=== PATIENT | female | born 1960 | race Two or more races ===

== ENCOUNTER 2023-02-25 08:34 | Emergency (ER) | payer OTHER ==
[~2023-02-25] VITALS: Ht 154.9 cm; Wt 57.5 kg
[2023-02-25 09:47] VITALS: BP 138/82; PULSE 72; RESP 18
[2023-02-25 09:48] VITALS: O2SAT 98
[2023-02-25] MEDS ORDERED: KETO2CRE4 TOP (09:54)
== END 2023-02-25 10:00 | disposition home or self-care (01) ==
LOC: ER 08:34
DX: L30.4 Erythema intertrigo (principal); E11.9 Type 2 diabetes mellitus without complications; Z79.899 Other long term (current) drug therapy
CPT/HCPCS: 82962

== ENCOUNTER 2024-04-15 11:31 | Emergency (ER) | payer BC, OTHER ==
[~2024-04-15] VITALS: Ht 154.9 cm; Wt 60.0 kg
[~2024-04-15 11:31] MED LIST: KETO2CRE4 TOP
[2024-04-15 12:50] VITALS: PULSE 65; RESP 18; O2SAT 98
[2024-04-15] MEDS: IBUPROFEN 600 MG TAB PO ONE (12:54)
[2024-04-15] MEDS ORDERED: IBU600T PO (14:27)
[2024-04-15 14:45] VITALS: BP 139/80; PULSE 62; RESP 18; TEMP 98; O2SAT 97
== END 2024-04-15 14:46 | disposition home or self-care (01) ==
LOC: ER 11:31
DX: M75.91 Shoulder lesion, unspecified, right shoulder (principal); E11.9 Type 2 diabetes mellitus without complications
CPT/HCPCS: 29105; 73030

== ENCOUNTER 2025-03-15 17:55 | Inpatient (IN) | payer OTHER, MEDICAID ==
[~2025-03-15] VITALS: Ht 160 cm; Wt 61.2 kg
[2025-03-15] MEDS: D5W/SOD CHLO 0.9% 1,000 ML IV SCH
[~2025-03-15 17:55] MED LIST changes: +IBU600T PO
--- NOTE | 2025-03-15 19:05 | DVH ---
EXAM: XY CHEST PORTABLE HISTORY: weakness TECHNIQUE: 1 view of the chest COMPARISON: CR CHEST 2 VIEW on DOS: 04/01/24 FINDINGS/IMPRESSION: LUNGS: No pleural effusion, consolidation, or pneumothorax MEDIASTINUM: Unremarkable BONES: No acute osseous abnormality OTHER: None
[2025-03-15 19:15] LABS: Hematocrit 44.2 % (36.0-46.0); Hemoglobin 14.4 g/dL (12.2-16.2); Mean Corpuscular Hemoglobin 29.1 pg (28.0-32.0); Mean Corpuscular Volume 89.4 fL (80.0-100.0); Nucleated Red Blood Cells % 0.1 %
[2025-03-15 19:22] LABS: Anion Gap 14 (5-15); Calcium 9.5 mg/dL (8.7-10.4); Carbon Dioxide 22 mmol/L (20-31)
--- NOTE | 2025-03-15 19:26 | ED.PDOC ---
History of Present Illness HPI Comments 64 y/o F, with a history of DM and HTN, presents with c/c poor appetite and generalized weakness for 1x month. Patient reports no notable events with exception of noncompliance with her medications for the past month. No endorsement of any smoking or drinking alongside any further acute symptoms at this time. Chief Complaint: General Weakness Time Seen by MD: 18:25 Primary Care Provider: ? Reviewed Notes: Nurses Notes, Medications, Allergies Allergies: Coded Allergies: NO KNOWN ALLERGIES (Unverified , 02/25/23) Home Meds Active Scripts Ibuprofen Micronized (MOTRIN TABLET) 600 Mg Tb, 600 MG PO TID PRN, #40 TAB *Black box warning-NSAIDS can increase risk of AR & hypertension, GI irritation, ulceration, bleed, perferation. Do not use post cardiac surgery. Use short duration/lowest effective dose. 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 Hx Family History Family History: Reviewed,noncontributory to illness Social History Smoker: Non-Smoker Alcohol: Denies ETOH Use Drugs: Denies Drug Use Lives In: Home All Other Systems: Reviewed and Negative (As per HPI) Physical Exam General Appearance: No Apparent Distress, Normal HEENT: Pharynx Normal, TMs Normal, Other (dry mucus membranes, otherwise normal HEENT exam ) Neck: Full Range of Motion, Non-Tender, Normal, Normal Inspection Respiratory: Chest Non-Tender, Lungs Clear, No Accessory Muscle Use, No Respiratory Distress, Normal Breath Sounds Cardiovascular: No Edema, No JVD, No Murmur, No Gallop, Normal Peripheral Pulses, Regular Rate/Rhythm Breast Exam: Deferred Gastrointestinal: No Organomegaly, Non Tender, No Pulsatile Mass, Normal Bowel Sounds, Soft Genitalia: Deferred Pelvic: Deferred Rectal: Deferred Extremities: No calf tenderness, Normal capillary refill, Normal inspection, Normal range of motion, Non-tender, No pedal edema Musculoskeletal : Apperance: Normal Neurologic: Alert, 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 Was a procedure done?: No Differential Dx Considerations may include: noncompliance, dehydration, electrolyte imbalance, viral syndrome, dka, hyperosmolar hyperglycemic syndrome X-Ray, Labs, Meds, VS Vital Signs Date Time Temp Pulse Resp B/P (MAP) Pulse Ox O2 Delivery O2 Flow Rate FiO2 03/15/25 20:48 91 18 99 Nasal Cannula* 2 28 03/15/25 20:48 99.2 91 18 121/65 (83) 99 99.2 03/15/25 18:00 99.2 106 16 130/85 94 99.2 Lab Test 03/15/25 19:53 03/15/25 19:44 03/15/25 18:54 Range/Units Blood Gas Specimen Type Arterial Blood Gas Sample Site Right radial Blood Gas Patient Temperature 37.0 Arterial Blood Date Drawn [id number] Arterial Blood pH 7.371 7.350-7.450 Arterial Blood Partial Pressure CO2 34.3 32.0-45.0 mmHg Arterial Blood Partial Pressure O2 60.7 L 83.0-108.0 mmHg Arterial Blood HCO3 19.4 L 21.0-28.0 mmol/L Arterial Blood Oxygen Saturation 89.4 L 94.0-98.0 % Arterial Blood Base Excess -4.9 L -2.0-3.0 mmol/L Arterial Blood Oxyhemoglobin 88.4 L 94.0-98.0 % Arterial Blood Carboxyhemoglobin 0.4 L 0.5-1.5 % Arterial Blood Methemoglobin 0.7 0.0-1.5 % Luis Test Yes Blood Gas Total Hemoglobin 15.10 12.0-16.0 g/dL Blood Gas Liter Flow 0.00 Blood Gas Modality Room air FiO2 % 21.0 Sodium Level Pending 126 L 136-145 mmol/L Potassium Level Pending 5.8 *H 3.5-5.1 mmol/L Chloride Level Pending 90 L 98-107 mmol/L Carbon Dioxide Level Pending 22 20-31 mmol/L Anion Gap Pending 14 5-15 Blood Urea Nitrogen Pending 44 H 9-23 mg/dL Creatinine Pending 1.53 H 0.550-1.02 mg/dL Glomerular Filtration Rate Calc Pending 37 >90 mL/min BUN/Creatinine Ratio Pending 28.8 H 10.0-20.0 Serum Glucose Pending 677 *H 74-106 mg/dL Calcium Level Pending 9.5 8.7-10.4 mg/dL Troponin I High Sensitivity < 3 L < 3 L </=34 ng/L White Blood Count 10.6 4.4-10.8 10^3/uL Red Blood Count 4.94 4.0-5.20 10^6/uL Hemoglobin 14.4 12.2-16.2 g/dL Hematocrit 44.2 36.0-46.0 % Mean Corpuscular Volume 89.4 80.0-100.0 fL Mean Corpuscular Hemoglobin 29.1 28.0-32.0 pg Mean Corpuscular Hemoglobin Concent 32.5 32.0-36.0 g/dL Red Cell Distribution Width 13.5 11.8-14.3 % Platelet Count 351 140-450 10^3/uL Mean Platelet Volume 7.9 6.9-10.8 fL Neutrophils (%) (Auto) 68.3 37.0-80.0 % Lymphocytes (%) (Auto) 23.9 10.0-50.0 % Monocytes (%) (Auto) 7.3 0.0-12.0 % Eosinophils (%) (Auto) 0.0 0.0-7.0 % Basophils (%) (Auto) 0.5 0.0-2.0 % Neutrophils # (Auto) 7.2 1.6-8.6 10 ^3/uL Lymphocytes # (Auto) 2.5 0.4-5.4 10 ^3/uL Monocytes # (Auto) 0.8 0-1.3 10 ^3/uL Eosinophils # (Auto) 0 0-0.8 10 ^3/uL Basophils # (Auto) 0.1 0-0.2 10 ^3/uL Nucleated Red Blood Cells 0.1 % Serum Osmolality Pending Beta-Hydroxybutyric Acid Pending Current Medications Medications (Trade) Dose Ordered Sig/Soumya Route Start Time Stop Time Status Last Admin Sodium Chloride 1,000 ml @ 1,000 mls/hr Q1H ONCE IV 03/15/25 18:45 03/15/25 19:44 DC 03/15/25 20:40 [facility] [id number] [place] [id number] Ph: [phone] DIAGNOSTIC IMAGING Diagnostic Imaging Report : [id number] Signed PATIENT: EZEQUIEL HILL ACCT: [id number] UNIT: [id number] : 1960 LOC: ER ROOM / BED: / AGE / SEX: 64 / F ADM STATUS: REG ER SERVICE 35 ORDERING PHYSICIAN: GIOVANNA MEJIA MD PROCEDURE(s): CXRP - CHEST PORTABLE REASON: weakness ORDER NUMBER(s): [id number], ACCESSION NUMBER(s): [id number] EXAM: XY CHEST PORTABLE HISTORY: weakness TECHNIQUE: 1 view of the chest COMPARISON: CR CHEST 2 VIEW on DOS: 04/01/24 FINDINGS/IMPRESSION: LUNGS: No pleural effusion, consolidation, or pneumothorax MEDIASTINUM: Unremarkable BONES: No acute osseous abnormality OTHER: None ATED BY: CHANDRAKANT ARMSTRONG MD DICTATED DATE/TIME: 03/15/251902 SIGNED BY: CHANDRAKANT ARMSTRONG MD SIGNED DATE/TIME: 03/15/251902 CC: Time of 1ST Reevaluation: 18:55 Reevaluation 1ST: Unchanged Patient Education/Counseling: Diagnosis, Treatment, Prognosis, Need For Follow Up Family Education/Counseling: No Family Present Comments This is a patient who is a known diabetic for unknown reasons started to refuse taking her medications and patient presents appearing dehydrated the workup shows she may be in early DKA patient will be admitted to the hospital for further evaluation and treatment Additional Information The following tests were ordered, and results were reviewed by me: Accucheck EKG, troponin, BMP, UA, CXR, CBC Additional Information was gathered from interviewing the following independent historians: Family I reviewed and agreed with the following test results read by other providers: CXR I discussed treatment and results with medical personnel and: patient, family SEPSIS Sepsis Screen Date sepsis recognized/suspect: Mar 15, 2025 Time Sepsis recognized/suspect: 1800 Recent Procedure: No On Antibiotic Therapy: No Respiratory Rate >20: No Heart Rate >90: Yes Temp<36 C (96.8 F) or >38.3 C: No SBP <90 or MAP <65 mmHG: No New Acute Mental Status Change: No Is the patient on CPAP, BIPAP,: No Physician Orders Chest Portable (03/15/25 18:36) Urinalysis (03/15/25 18:36) Electrocardigram (03/15/25 18:36) Electrocardigram (03/15/25 19:36) Electrocardigram (03/15/25 21:36) Accucheck (03/15/25 18:36) Insulin Drip Protocol (03/15/25 ) Sodium Chloride 0.9% (03/15/25 19:45) Sodium Chloride 0.9% (03/16/25 01:45) Insulin Drip 100 Unit/100ml (Myxredlin 1 (03/15/25 19:45) Dextrose 50% Syringe (03/15/25 19:45) Glucose Blood (Accu-Chek Comfort Curve T (03/15/25 21:00) Osmolality, Serum (03/15/25 19:35) Basic Metabolic Panel (03/15/25 19:35) Basic Metabolic Panel (03/16/25 01:35) Basic Metabolic Panel (03/16/25 07:35) Basic Metabolic Panel (03/16/25 13:35) Neurological Assessment (03/15/25 19:35) Vs/Hemodynamics .PER UNIT PROTOCOL (03/15/25 19:35) Acetone (03/15/25 19:35) Insulin Lantus (Glargine) (Lantus) (03/16/25 10:00) Sodium Chloride 0.9% (03/15/25 23:45) Abg W/ Co-Ox (03/15/25 19:57) Vital Signs Date Time Temp Pulse Resp B/P (MAP) Pulse Ox O2 Delivery O2 Flow Rate FiO2 03/15/25 20:48 91 18 99 Nasal Cannula* 2 28 03/15/25 20:48 99.2 91 18 121/65 (83) 99 99.2 03/15/25 18:00 99.2 106 16 130/85 94 99.2 Laboratory Tests Test 03/15/25 18:54 White Blood Count 10.6 10^3/uL (4.4-10.8) Medications Medications Dose Ordered Sig/Soumya Route Start Time Stop Time Status Last Admin Dose Admin Sodium Chloride 1,000 ml @ 1,000 mls/hr Q1H ONCE IV 03/15/25 18:45 03/15/25 19:44 DC 03/15/25 20:40 Departure 1 Departure Time of Disposition: 21:19 Impression: Primary Impression: DKA (diabetic ketoacidosis) Qualified Codes: E10.10 - Type 1 diabetes mellitus with ketoacidosis without coma Additional Impressions: Renal failure Qualified Codes: N19 - Unspecified kidney failure Hyperkalemia Disposition: ADMITTED INPATIENT Admit to: ICU Condition: Serious Discharged With: Self, Relative Critical Care Note Critical Care Time?: Yes (55 min-critical care time only) Critical care comment: Due to concerns for patients condition deteriorating, the care required my highest level of attention and readiness to intervene. I assessed the patient, reviewed the medical records, ordered the appropriate tests and treatments, then reassessed for results and responsiveness. I communicated with medical personnel and consultants and formulated a plan of care. Total critical care time excludes any procedures Stability Stability form required: No Heart Score Heart Score: Heart Score Response (Comments) Value History N/A 0 EKG N/A 0 Age N/A 0 Risk Factors N/A 0 Troponin N/A 0 Total 0 I personally scribed for GIOVANNA MEJIA MD ([email or web address]) on 03/15/25 at 19:26. Electronically submitted by Scottie Morgan [email or web address]). GIOVANNA MEJIA MD Mar 15, 2025 19:26
[2025-03-15 19:27] LABS: BUN/Creatinine Ratio 28.8 (10.0-20.0)
[2025-03-15 19:29] LABS: Blood Urea Nitrogen 44 mg/dL (9-23); Chloride 90 mmol/L (98-107); Sodium 126 mmol/L (136-145)
[2025-03-15 19:31] LABS: Glucose 677 mg/dL (74-106); Potassium 5.8 mmol/L (3.5-5.1)
[2025-03-15] MEDS ORDERED: DEXTROSE (50%) 50ML SYRG IV PRN (19:45)
[2025-03-15 20:01] LABS: Base Excess -4.9 mmol/L (-2.0-3.0)
[2025-03-15 20:35] LABS: Anion Gap 14 (5-15); Calcium 9.1 mg/dL (8.7-10.4); Carbon Dioxide 21 mmol/L (20-31)
[2025-03-15 20:40] LABS: BUN/Creatinine Ratio 42.0 (10.0-20.0)
[2025-03-15] MEDS: SODIUM CHLORIDE 0.9% 1,000 ML IV ONE (20:40)
[2025-03-15 20:48] VITALS: PULSE 91; RESP 18; O2SAT 99
[2025-03-15] MEDS: INSULIN LANTUS (GLARGINE) 1 /0.01ml (100units/ml) SC ONE ×3 (21:22→21:27)
[2025-03-15] MEDS: ACCU-CHEK COMFORT CURVE STRIP VI SCH (21:26)
[2025-03-15 21:31] LABS: Blood Urea Nitrogen 60 mg/dL (9-23); Chloride 89 mmol/L (98-107); Sodium 124 mmol/L (136-145)
[2025-03-15 21:33] LABS: Glucose 667 mg/dL (74-106); Potassium 6.2 mmol/L (3.5-5.1)
[2025-03-15] MEDS: SODIUM CHLORIDE 0.9% 1,000 ML IV SCH ×3 (21:35→23:45)
[2025-03-15] MEDS ORDERED: HYDROcodone-ACET 5/325MG TAB PO PRN (22:00)
[2025-03-15] MEDS ORDERED: ONDANSETRON HCL 4 MG/2 ML VIAL IV PRN (22:00)
[2025-03-15 22:02] LABS: Urine Protein, UAD Negative (Negative)
--- NOTE | 2025-03-15 22:06 | DVHHP2 ---
Admitting Diagnosis: DKA, KATELYN, Electrolyte imbalance History of Present Illness History Source: Patient Exam Limitations: No limitations HPI Mrs. Arti Hinson is a 64 yo female with a history of DM and HTN, presents with a chief complaint of poor appetite and generalized weakness for 1 month. Patient reports no notable events with exception of noncompliance with her medications for the past month. No endorsement of any smoking or drinking alongside any further acute symptoms at this time. Patient son and daughter in law at bedside. Patient reports she has been feeling very weak for the past month, and that she has not taken her blood pressure and diabetes mellitus medications x 1 week , states "I forgot to take them" , also reports she has not been taking her anti depression medications x 1 month, states she stopped them abruptly. Patient son reports patient has been depressed due to loss of her son x 2 years ago. Also endorses patient has had a very poor appetite in the past couple of weeks. Patient denies any suicidal ideation, chest pain, headaches, dizziness, abdominal pain, nausea, vomiting, diarrhea, constipation. Patient admitted for further evaluation and treatment. Home Meds Active Scripts Ibuprofen Micronized (MOTRIN TABLET) 600 Mg Tb, 600 MG PO TID PRN, #40 TAB *Black box warning-NSAIDS can increase risk of PA & hypertension, GI irritation, ulceration, bleed, perferation. Do not use post cardiac surgery. Use short duration/lowest effective dose. Prov:GIOVANNA MEJIA MD 04/15/24 Ketoconazole (Ketoconazole) 2 % Cre, 1 APPLIC TOP BID, #60 GRAMS Prov:ERIC ESQUIVEL 02/25/23 Past Medical History Cardiac: HTN Pulmonary: No pertinent Hx Central Nervous System: No pertinent Hx GI: No pertinent Hx Hemotology/Oncology: No pertinent Hx Hepatobiliary: No pertinent Hx Psychiatric: Depression Musculoskeletal: No pertinent Hx Rheumotologic: No pertinent Hx Infectious Disease: No peritnent Hx ENT: No pertinent Hx Renal/: No pertinent Hx Endocrine: NIDDM Dermatology: No pertinent Hx Smoker: No Hx (Negative) Alocohol: None Drugs: None Lives with: With family Domestic Violence: Neg Review of Systems Constitutional: Weakness (generalized ), Other (poor appetite ) Ears, Nose, & Throat: No symptom reported Eyes: No symptom reported Pulmonary/Respiratory: No symptom reported Cardiovascular: No symptom reported Gastrointestinal: No symptom reported Genitourinary: No symptom reported Musculoskeletal: No symptom reported Skin: No symptom reported Psychiatric: No symptom reported Endocrine: No symptom reported Hemotologic/Lymphatic: No symptom reported H&P Exam Vital Signs Vital Signs Date Time Temp Pulse Resp B/P (MAP) Pulse Ox O2 Delivery O2 Flow Rate FiO2 03/15/25 20:48 91 18 99 Nasal Cannula* 2 28 03/15/25 20:48 99.2 121/65 (83) 99.2 General Appeara: Well developed, Well nourished, Other (flat affect) Head Exam: Normal inspection Neck Exam: Normal inspection, Non-tender, Normal alignment Eye Exam: bilateral eye Normal inspection, bilateral eye PERRL, bilateral eye EOMI Ear Exam: bilateral ear Auricle normal Nasal Exam: Normal inspection Mouth: Normal Inspection Pulmonary/Respiratory: Normal inspection, Normal breath sounds, Chest non- tender, Lungs clear Cardiovascular/Chest: Normal inspection, Regular rate, Normal Rhythm Peripheral Pulses: 2+ dorsalis pedis (R), 2+ dorsalis pedis (L) Abdominal Exam: Normal bowel sounds, Soft, No tenderness Tendon/ Neuro: Normal sensation, Normal motor function 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, Normal speech, PERRL Motor/Sensory: Normal sensory function, Normal motor function Neuro/Mental St: Alert, Oriented, Depressed affect (denies SI) Appearance: Appropriate appearance, Appropriate insight Eye contact/ Speech: Cooperative, Good eye contact, Normal speech Thoughts/Psych: Normal thought pattern Skin Exam: Normal inspection, Normal color, Warm/dry SEPSIS Sepsis Screen Date sepsis recognized/suspect: Mar 15, 2025 Time Sepsis recognized/suspect: 1800 Recent Procedure: No On Antibiotic Therapy: No Respiratory Rate >20: No Heart Rate >90: Yes Temp<36 C (96.8 F) or >38.3 C: No SBP <90 or MAP <65 mmHG: No New Acute Mental Status Change: No Is the patient on CPAP, BIPAP,: No Physician Orders Chest Portable (03/15/25 18:36) Urinalysis (03/15/25 18:36) Electrocardigram (03/15/25 18:36) Electrocardigram (03/15/25 19:36) Electrocardigram (03/15/25 21:36) Accucheck (03/15/25 18:36) Insulin Drip Protocol (03/15/25 ) Sodium Chloride 0.9% (03/15/25 19:45) Sodium Chloride 0.9% (03/16/25 01:45) Insulin Drip 100 Unit/100ml (Myxredlin 1 (03/15/25 19:45) Dextrose 50% Syringe (03/15/25 19:45) Glucose Blood (Accu-Chek Comfort Curve T (03/15/25 21:00) Neurological Assessment (03/15/25 19:35) Vs/Hemodynamics .PER UNIT PROTOCOL (03/15/25 19:35) Insulin Lantus (Glargine) (Lantus) (03/16/25 10:00) Sodium Chloride 0.9% (03/15/25 23:45) Abg W/ Co-Ox (03/15/25 19:57) Basic Metabolic Panel (03/16/25 01:35) Basic Metabolic Panel (03/16/25 02:00) Basic Metabolic Panel (03/16/25 06:00) Basic Metabolic Panel (03/16/25 10:00) Albuterol Medneb (Ventolin Medneb) (03/15/25 22:00) Sodium Bicarb 50meq/50ml Syr (03/15/25 22:00) Calcium Gluc 1,000mg/50ml-Ns (03/15/25 22:00) Sodium Zirconium Cyclosilicate (Lokelma) (03/15/25 22:00) Basic Metabolic Panel (03/15/25 22:00) Basic Metabolic Panel (03/16/25 02:00) Basic Metabolic Panel (03/16/25 06:00) Basic Metabolic Panel (03/16/25 10:00) Basic Metabolic Panel (03/16/25 14:00) Basic Metabolic Panel (03/16/25 18:00) Basic Metabolic Panel (03/16/25 22:00) Basic Metabolic Panel (03/17/25 02:00) Basic Metabolic Panel (03/17/25 06:00) Basic Metabolic Panel (03/17/25 10:00) Phosphorus (03/15/25 22:00) Phosphorus (03/16/25 02:00) Phosphorus (03/16/25 06:00) Phosphorus (03/16/25 10:00) Phosphorus (03/16/25 14:00) Phosphorus (03/16/25 18:00) Phosphorus (03/16/25 22:00) Phosphorus (03/17/25 02:00) Magnesium (03/16/25 05:00) Magnesium (03/17/25 05:00) Magnesium (03/18/25 05:00) Magnesium (03/19/25 05:00) Magnesium (03/20/25 05:00) Magnesium (03/21/25 05:00) Magnesium (03/22/25 05:00) Magnesium (03/23/25 05:00) Accucheck (03/15/25 22:00) Accucheck (03/15/25 23:00) Accucheck (03/16/25 00:00) Accucheck (03/16/25 01:00) Accucheck (03/16/25 02:00) Accucheck (03/16/25 03:00) Accucheck (03/16/25 04:00) Accucheck (03/16/25 05:00) Accucheck (03/16/25 06:00) Accucheck (03/16/25 07:00) Accucheck (03/16/25 08:00) Accucheck (03/16/25 09:00) Accucheck (03/16/25 10:00) Accucheck (03/16/25 11:00) Accucheck (03/16/25 12:00) Accucheck (03/16/25 13:00) Accucheck (03/16/25 14:00) Accucheck (03/16/25 15:00) Accucheck (03/16/25 16:00) Accucheck (03/16/25 17:00) Accucheck (03/16/25 18:00) Accucheck (03/16/25 19:00) Accucheck (03/16/25 20:00) Accucheck (03/16/25 21:00) Accucheck (03/16/25 22:00) Accucheck (03/16/25 23:00) Accucheck (03/17/25 00:00) Accucheck (03/17/25 01:00) Accucheck (03/17/25 02:00) Sodium Chloride 0.9% (03/15/25 22:00) D5w/Sod Chlo 0.9% (D5w Ns 0.9%) (03/15/25 22:00) Pt Request For Service (03/15/25 21:48) Fall Precautions Initiated (03/15/25 21:48) Ondansetron Hcl (Zofran) (03/15/25 22:00) Acetaminophen Tablet (Tylenol Tablet) (03/15/25 22:00) Hydrocodone-Acet 5/325mg Tab ([facility] 5/32 (03/15/25 22:00) Pantoprazole (Protonix) (03/16/25 10:00) Enoxaparin Sodium (Lovenox) (03/16/25 10:00) Admit (03/15/25 21:57) Stat Ekg For Chest Pain (03/15/25 21:57) Notify Md Of Changes From Base (03/15/25 21:57) Residential Installer For 24 Hours (03/15/25 21:57) Emergency Dysrhythmia Protocol (03/15/25 21:57) Rhythm Strips Once Every Shift (03/15/25 21:57) Oxygen By Nasal Cannula (03/15/25 21:57) *Dr. Hunter [facility] (03/15/25 21:57) Communication Order (03/15/25 21:59) Vital Signs Date Time Temp Pulse Resp B/P (MAP) Pulse Ox O2 Delivery O2 Flow Rate FiO2 03/15/25 20:48 91 18 99 Nasal Cannula* 2 28 03/15/25 20:48 99.2 91 18 121/65 (83) 99 99.2 03/15/25 18:00 99.2 106 16 130/85 94 99.2 Laboratory Tests Test 03/15/25 18:54 White Blood Count 10.6 10^3/uL (4.4-10.8) Medications Medications Dose Ordered Sig/Soumya Route Start Time Stop Time Status Last Admin Dose Admin Diagnostic Test (Pha) 1 strip Q90MIN 03/15/25 21:00 03/15/25 21:26 1 STRIP Insulin Glargine 15 units ONCE ONCE SC 03/15/25 21:00 03/15/25 21:01 DC 03/15/25 21:24 15 UNITS Sodium Chloride 1,000 ml @ 500 mls/hr Q2H IV 03/15/25 19:45 03/15/25 23:44 03/15/25 21:35 500 MLS/HR Sodium Chloride 1,000 ml @ 1,000 mls/hr Q1H ONCE IV 03/15/25 18:45 03/15/25 19:44 DC 03/15/25 20:40 1,000 MLS/HR Labs/Xrays Labs Test 03/15/25 21:21 03/15/25 19:53 03/15/25 19:44 03/15/25 18:54 Range/Units POC Glucose 501 *H 70-106 mg/dl Blood Gas Specimen Type Arterial Blood Gas Sample Site Right radial Blood Gas Patient Temperature 37.0 Arterial Blood Date Drawn [id number] Arterial Blood pH 7.371 7.350-7.450 Arterial Blood Partial Pressure CO2 34.3 32.0-45.0 mmHg Arterial Blood Partial Pressure O2 60.7 L 83.0-108.0 mmHg Arterial Blood HCO3 19.4 L 21.0-28.0 mmol/L Arterial Blood Oxygen Saturation 89.4 L 94.0-98.0 % Arterial Blood Base Excess -4.9 L -2.0-3.0 mmol/L Arterial Blood Oxyhemoglobin 88.4 L 94.0-98.0 % Arterial Blood Carboxyhemoglobin 0.4 L 0.5-1.5 % Arterial Blood Methemoglobin 0.7 0.0-1.5 % Luis Test Yes Blood Gas Total Hemoglobin 15.10 12.0-16.0 g/dL Blood Gas Liter Flow 0.00 Blood Gas Modality Room air FiO2 % 21.0 Sodium Level 124 L 136-145 mmol/L Potassium Level 6.2 *H 3.5-5.1 mmol/L Chloride Level 89 L 98-107 mmol/L Carbon Dioxide Level 21 20-31 mmol/L Anion Gap 14 5-15 Blood Urea Nitrogen 60 #H 9-23 mg/dL Creatinine 1.43 H 0.550-1.02 mg/dL Glomerular Filtration Rate Calc 40 >90 mL/min BUN/Creatinine Ratio 42.0 H 10.0-20.0 Serum Glucose 667 *H 74-106 mg/dL Calcium Level 9.1 8.7-10.4 mg/dL Troponin I High Sensitivity < 3 L </=34 ng/L White Blood Count 10.6 4.4-10.8 10^3/uL Red Blood Count 4.94 4.0-5.20 10^6/uL Hemoglobin 14.4 12.2-16.2 g/dL Hematocrit 44.2 36.0-46.0 % Mean Corpuscular Volume 89.4 80.0-100.0 fL Mean Corpuscular Hemoglobin 29.1 28.0-32.0 pg Mean Corpuscular Hemoglobin Concent 32.5 32.0-36.0 g/dL Red Cell Distribution Width 13.5 11.8-14.3 % Platelet Count 351 140-450 10^3/uL Mean Platelet Volume 7.9 6.9-10.8 fL Neutrophils (%) (Auto) 68.3 37.0-80.0 % Lymphocytes (%) (Auto) 23.9 10.0-50.0 % Monocytes (%) (Auto) 7.3 0.0-12.0 % Eosinophils (%) (Auto) 0.0 0.0-7.0 % Basophils (%) (Auto) 0.5 0.0-2.0 % Neutrophils # (Auto) 7.2 1.6-8.6 10 ^3/uL Lymphocytes # (Auto) 2.5 0.4-5.4 10 ^3/uL Monocytes # (Auto) 0.8 0-1.3 10 ^3/uL Eosinophils # (Auto) 0 0-0.8 10 ^3/uL Basophils # (Auto) 0.1 0-0.2 10 ^3/uL Nucleated Red Blood Cells 0.1 % Serum Osmolality 326 H 278-298 mOsm/kg Beta-Hydroxybutyric Acid 3.148 H < 0.4 mmol/L Test 03/15/25 18:36 Range/Units Assessment/Plan Problem List: (1) Acute kidney failure (2) DKA (diabetic ketoacidosis) (3) Hyperkalemia Plan This is a 64 yo female with known history of hypertension, diabetes mellitus type 2 , Depression, non compliance with home medications presents to the hospital with generalized weakness. Patient found to have 1. Acute Kidney Injury 2. DKA 3. Electrolyte imbalance 4. Hypertension 5. Depressive affect Plan Admit ICU Nephrology consultation Insulin drip per DKA protocol, glucose monitoring hourly while on insulin drip IV fluids Trend serial BMP, Phos , Magnesium every 4 hours Tele Psych consultation Discussed all above with patient and patient son and daughter in law in ED. Both family members and patient verbalized agreement and understanding of care plan. All questions were answered. Discussed with supervising MD. Plan discussed with: Patient, Other Code Visit Code Visit Total Time (mins): 45 CHERI MARSHALL Mar 15, 2025 22:06 EVENS PASCAL MD Mar 16, 2025 17:41
[2025-03-15] MEDS: ALBUTEROL SULF 2.5 MG/0.5ML(0.5%) NEB SOLN NEB ONE (22:19)
[2025-03-15 22:43] LABS: Chloride 100 mmol/L (98-107)
[2025-03-15 22:44] LABS: Anion Gap 11 (5-15)
[2025-03-15 22:49] LABS: BUN/Creatinine Ratio 29.2 (10.0-20.0)
[2025-03-15 22:56] LABS: Blood Urea Nitrogen 35 mg/dL (9-23); Calcium 8.3 mg/dL (8.7-10.4); Carbon Dioxide 20 mmol/L (20-31); Potassium 5.1 mmol/L (3.5-5.1); Sodium 131 mmol/L (136-145)
[2025-03-15 22:58] LABS: Glucose 506 mg/dL (74-106)
[2025-03-16] VITALS (96 sets, daily range): BP systolic 76–147; BP diastolic 36–75; PULSE 61–103; RESP 9–27; TEMP 98.3–98.6; O2SAT 88–100
[2025-03-16] MEDS ORDERED: INSULIN DRIP 100 UNIT/100ML 100 ML IV SCH ×2 (00:15→01:45)
[2025-03-16] MEDS: INSULIN DRIP 100 UNIT/100ML 100 ML IV SCH (00:18)
[2025-03-16] MEDS: CALCIUM GLUC 1,000mg/50ml-NS 50 ML IV ONE (00:34)
[2025-03-16] MEDS: SODIUM BICARB 8.4% 50Meq/50ml SYR INJ IV ONE (01:06)
[2025-03-16] MEDS: SODIUM ZIRCONIUM CYCL 10 GM PAK PO ONE (01:17)
[2025-03-16] MEDS: SODIUM CHLORIDE 0.9% 1,000 ML IV SCH (01:35)
[2025-03-16 02:23] LABS: Chloride 102 mmol/L (98-107); Potassium 4.5 mmol/L (3.5-5.1); Sodium 137 mmol/L (136-145)
[2025-03-16 02:24] LABS: Anion Gap 17 (5-15)
[2025-03-16 02:26] LABS: Calcium 8.1 mg/dL (8.7-10.4); Carbon Dioxide 18 mmol/L (20-31)
[2025-03-16 02:29] LABS: BUN/Creatinine Ratio 29.3 (10.0-20.0)
[2025-03-16 02:30] LABS: Magnesium 2.4 mg/dL (1.6-2.6)
[2025-03-16 02:35] LABS: Blood Urea Nitrogen 29 mg/dL (9-23); Glucose 442 mg/dL (74-106)
[2025-03-16 05:11] LABS: Chloride 107 mmol/L (98-107); Potassium 3.7 mmol/L (3.5-5.1); Sodium 141 mmol/L (136-145)
[2025-03-16 05:12] LABS: Anion Gap 12 (5-15); Carbon Dioxide 22 mmol/L (20-31)
[2025-03-16 05:17] LABS: BUN/Creatinine Ratio 55.4 (10.0-20.0)
[2025-03-16 05:18] LABS: Magnesium 2.1 mg/dL (1.6-2.6)
[2025-03-16 05:19] LABS: Blood Urea Nitrogen 41 mg/dL (9-23); Calcium 8.0 mg/dL (8.7-10.4); Glucose 255 mg/dL (74-106)
[2025-03-16] MEDS: NOREPINEPHRINE 8 MG/250ML KIT 250 ML IV SCH (06:15)
[2025-03-16] MEDS: PANTOPRAZOLE 40 MG/10 ML VIAL INJ IV SCH (08:10)
[2025-03-16] MEDS: ENOXAPARIN SOD 40 MG/0.4 ML SYRINGE SC SCH (08:11)
[2025-03-16] MEDS: INSULIN LANTUS (GLARGINE) 1 /0.01ml (100units/ml) SC SCH (08:11)
--- NOTE | 2025-03-16 10:09 | DVHINCON2 ---
Date of service: Mar 16, 2025 Referring Physician Asia Monahan, nurse practitioner Reason for Consultation Acute kidney injury History of Present Illness Patient is 64-year-old female with past medical history significant for uncontrolled diabetes mellitus and hypertension is admitted for generalized weakness for one month, patient has stopped taking her insulin due to episodes of depression. On admission patient found to have elevated BUN creatinine and multiple electrolyte abnormalities nephrology is consulted for acute kidney injury Past Medical History Diabetes mellitus, hypertension Past Surgical History Patient denies Allergies: Coded Allergies: NO KNOWN ALLERGIES (Unverified , 02/25/23) Home Meds Active Scripts Ibuprofen Micronized (MOTRIN TABLET) 600 Mg Tb, 600 MG PO TID PRN, #40 TAB *Black box warning-NSAIDS can increase risk of VA & hypertension, GI irritation, ulceration, bleed, perferation. Do not use post cardiac surgery. Use short duration/lowest effective dose. Prov:GIOVANNA MEJIA MD 04/15/24 Ketoconazole (Ketoconazole) 2 % Cre, 1 APPLIC TOP BID, #60 GRAMS Prov:ERIC ESQUIVEL 02/25/23 Current Medications Current Medications Medications (Trade) Dose Ordered Sig/Soumya Route PRN Reason Start Time Stop Time Status Last Admin Sodium Chloride 1,000 ml @ 500 mls/hr Q2H IV 03/15/25 19:45 03/15/25 23:44 DC 03/15/25 22:20 Sodium Chloride 1,000 ml @ 250 mls/hr Q4H IV 03/15/25 23:45 03/16/25 01:44 DC Sodium Chloride 1,000 ml @ 150 mls/hr Q6H40M IV 03/16/25 01:45 03/16/25 12:05 DC Insulin Human (Reg)/Sodium Chloride 100 ml @ 0.5 mls/hr Q24H IV 03/15/25 19:45 03/16/25 12:05 DC 03/16/25 00:18 Dextrose 50 ml UD PRN IV SEE CURRENT ALGORITHM or SCALE 03/15/25 19:45 Diagnostic Test (Pha) (Accu-Chek Comfort Curve T) 1 strip Q90MIN 03/15/25 21:00 03/16/25 12:05 DC 03/16/25 10:32 Insulin Glargine (Lantus) 15 units DAILY SC 03/16/25 10:00 03/16/25 08:11 Sodium Chloride 1,000 ml @ 250 mls/hr Q4H IV 03/15/25 22:00 03/16/25 12:05 DC 03/16/25 09:11 Dextrose/Sodium Chloride 1,000 ml @ 250 mls/hr Q4H IV 03/15/25 22:00 03/16/25 12:05 DC 03/16/25 06:14 Ondansetron HCl (Zofran) 4 mg Q6HPRN PRN IV NAUSEA OR VOMITING 03/15/25 22:00 Acetaminophen (Tylenol Tablet) 650 mg Q6HPRN PRN PO PAIN SCALE 1-3 OR TEMP>100.4 03/15/25 22:00 Acetaminophen/ Hydrocodone Bitart ([place] 5/325MG Tab) 1 tab Q6HPRN PRN PO PAIN SCALE 1 THRU 6 03/15/25 22:00 Pantoprazole Sodium (Protonix) 40 mg DAILY IV 03/16/25 10:00 03/16/25 08:10 Enoxaparin Sodium (Lovenox) 40 mg DAILY SC 03/16/25 10:00 03/16/25 08:11 Insulin Human (Reg)/Sodium Chloride 100 ml @ 0.5 mls/hr Q24H IV 03/16/25 00:15 03/16/25 00:26 DC Insulin Human (Reg)/Sodium Chloride 100 ml @ 0.5 mls/hr Q24H IV 03/16/25 01:45 UNV Norepinephrine Bitartrate 250 ml @ 3.75 mls/hr Q24H IV 03/16/25 06:00 03/16/25 06:15 Potassium Chloride/Sodium Chloride 1,000 ml @ 125 mls/hr Q8H IV 03/16/25 12:00 Nystatin (Mycostatin (Mouth-Throat)) 5 ml QID MT 03/16/25 12:00 Diagnostic Test (Pha) (Accu-Chek Comfort Curve T) 1 strip ACHS 03/16/25 17:00 Insulin Human Regular (InsuLIN R) ACHS SC 03/16/25 17:00 Dextrose 50 ml UD PRN IV Blood Sugar LESS THAN 60 03/16/25 12:00 Review of Systems All 12 item review of systems reviewed with the patient nonsignificant except what is mentioned in the history of present illness H&P Exam Vital Signs/I&O Vital Sign Date Time Temp Pulse Resp B/P (MAP) Pulse Ox O2 Delivery O2 Flow Rate FiO2 03/16/25 11:55 15 94 Room Air* 0 21 03/16/25 11:55 80 03/16/25 10:30 113/51 (71) 03/16/25 08:00 98.6 98.6 Intake and Output 03/15/25 03/16/25 19:00 07:00 Intake Total 2894.25 ml Output Total 0 ml Balance 2894.25 ml Intake Oral 120 ml IV Total 2774.25 ml Output Urine Total 0 ml Physical Exam Patient lying comfortably in bed Lungs clear to auscultation bilaterally Cardiac exam regular rate and rhythm GI soft nontender was normal Extremities no clubbing cyanosis or edema Neuro nonfocal Labs/Diagnostic Data Labs/Diagnostic Data Laboratory Tests Test 03/16/25 10:30 03/16/25 10:22 03/16/25 09:30 03/16/25 09:05 Range/Units POC Glucose 179 H 294 H 70-106 mg/dl White Blood Count 9.5 4.4-10.8 10^3/uL Red Blood Count 4.20 4.0-5.20 10^6/uL Hemoglobin 12.3 12.2-16.2 g/dL Hematocrit 37.2 # 36.0-46.0 % Mean Corpuscular Volume 88.5 80.0-100.0 fL Mean Corpuscular Hemoglobin 29.4 28.0-32.0 pg Mean Corpuscular Hemoglobin Concent 33.2 32.0-36.0 g/dL Red Cell Distribution Width 13.3 11.8-14.3 % Platelet Count 219 140-450 10^3/uL Mean Platelet Volume 7.6 6.9-10.8 fL Neutrophils (%) (Auto) 56.6 37.0-80.0 % Lymphocytes (%) (Auto) 33.4 10.0-50.0 % Monocytes (%) (Auto) 9.2 0.0-12.0 % Eosinophils (%) (Auto) 0.2 0.0-7.0 % Basophils (%) (Auto) 0.6 0.0-2.0 % Neutrophils # (Auto) 5.4 1.6-8.6 10 ^3/uL Lymphocytes # (Auto) 3.2 0.4-5.4 10 ^3/uL Monocytes # (Auto) 0.9 0-1.3 10 ^3/uL Eosinophils # (Auto) 0 0-0.8 10 ^3/uL Basophils # (Auto) 0.1 0-0.2 10 ^3/uL Nucleated Red Blood Cells 0.1 % Sodium Level 142 136-145 mmol/L Potassium Level 3.4 L 3.5-5.1 mmol/L Chloride Level 110 H 98-107 mmol/L Carbon Dioxide Level 23 20-31 mmol/L Anion Gap 9 5-15 Blood Urea Nitrogen 21 # 9-23 mg/dL Creatinine 0.68 0.550-1.02 mg/dL Glomerular Filtration Rate Calc 96 >90 mL/min BUN/Creatinine Ratio 30.9 H 10.0-20.0 Serum Glucose 216 H 74-106 mg/dL Calcium Level 7.3 L 8.7-10.4 mg/dL Phosphorus Level 2.0 L 2.4-5.1 mg/dL Magnesium Level 2.2 1.6-2.6 mg/dL Urine Creatinine 33.74 30.0-125.0 mg/dL Urine Protein/Creatinine Ratio 0.27 Urine Sodium 68 40-220 mmol/L Urine Total Protein 9.1 1-14 mg/dL Test 03/16/25 07:43 03/16/25 06:01 03/16/25 04:36 03/16/25 04:28 Range/Units POC Glucose 274 H 178 H 270 H 70-106 mg/dl Sodium Level 141 136-145 mmol/L Potassium Level 3.7 3.5-5.1 mmol/L Chloride Level 107 98-107 mmol/L Carbon Dioxide Level 22 20-31 mmol/L Anion Gap 12 5-15 Blood Urea Nitrogen 41 #H 9-23 mg/dL Creatinine 0.74 0.550-1.02 mg/dL Glomerular Filtration Rate Calc 89 >90 mL/min BUN/Creatinine Ratio 55.4 H 10.0-20.0 Serum Glucose 255 H 74-106 mg/dL Calcium Level 8.0 L 8.7-10.4 mg/dL Phosphorus Level 2.8 2.4-5.1 mg/dL Magnesium Level 2.1 1.6-2.6 mg/dL Test 03/16/25 03:02 03/16/25 01:59 03/16/25 01:32 03/15/25 23:56 Range/Units POC Glucose 352 H 442 *H 522 *H 70-106 mg/dl Sodium Level 137 # 136-145 mmol/L Potassium Level 4.5 3.5-5.1 mmol/L Chloride Level 102 98-107 mmol/L Carbon Dioxide Level 18 L 20-31 mmol/L Anion Gap 17 H 5-15 Blood Urea Nitrogen 29 H 9-23 mg/dL Creatinine 0.99 0.550-1.02 mg/dL Glomerular Filtration Rate Calc 63 >90 mL/min BUN/Creatinine Ratio 29.3 H 10.0-20.0 Serum Glucose 442 *H 74-106 mg/dL Calcium Level 8.1 L 8.7-10.4 mg/dL Phosphorus Level 4.1 2.4-5.1 mg/dL Magnesium Level 2.4 1.6-2.6 mg/dL Test 03/15/25 22:26 03/15/25 21:21 03/15/25 19:53 03/15/25 19:44 Range/Units Sodium Level 131 #L 124 L 136-145 mmol/L Potassium Level 5.1 6.2 *H 3.5-5.1 mmol/L Chloride Level 100 # 89 L 98-107 mmol/L Carbon Dioxide Level 20 21 20-31 mmol/L Anion Gap 11 14 5-15 Blood Urea Nitrogen 35 #H 60 #H 9-23 mg/dL Creatinine 1.20 H 1.43 H 0.550-1.02 mg/dL Glomerular Filtration Rate Calc 50 40 >90 mL/min BUN/Creatinine Ratio 29.2 H 42.0 H 10.0-20.0 Serum Glucose 506 *H 667 *H 74-106 mg/dL Calcium Level 8.3 L 9.1 8.7-10.4 mg/dL Phosphorus Level 4.1 2.4-5.1 mg/dL POC Glucose 501 *H 70-106 mg/dl Blood Gas Specimen Type Arterial Blood Gas Sample Site Right radial Blood Gas Patient Temperature 37.0 Arterial Blood Date Drawn [id number] Arterial Blood pH 7.371 7.350-7.450 Arterial Blood Partial Pressure CO2 34.3 32.0-45.0 mmHg Arterial Blood Partial Pressure O2 60.7 L 83.0-108.0 mmHg Arterial Blood HCO3 19.4 L 21.0-28.0 mmol/L Arterial Blood Oxygen Saturation 89.4 L 94.0-98.0 % Arterial Blood Base Excess -4.9 L -2.0-3.0 mmol/L Arterial Blood Oxyhemoglobin 88.4 L 94.0-98.0 % Arterial Blood Carboxyhemoglobin 0.4 L 0.5-1.5 % Arterial Blood Methemoglobin 0.7 0.0-1.5 % Luis Test Yes Blood Gas Total Hemoglobin 15.10 12.0-16.0 g/dL Blood Gas Liter Flow 0.00 Blood Gas Modality Room air FiO2 % 21.0 Troponin I High Sensitivity < 3 L </=34 ng/L Test 03/15/25 18:54 03/15/25 18:36 Range/Units White Blood Count 10.6 4.4-10.8 10^3/uL Red Blood Count 4.94 4.0-5.20 10^6/uL Hemoglobin 14.4 12.2-16.2 g/dL Hematocrit 44.2 36.0-46.0 % Mean Corpuscular Volume 89.4 80.0-100.0 fL Mean Corpuscular Hemoglobin 29.1 28.0-32.0 pg Mean Corpuscular Hemoglobin Concent 32.5 32.0-36.0 g/dL Red Cell Distribution Width 13.5 11.8-14.3 % Platelet Count 351 140-450 10^3/uL Mean Platelet Volume 7.9 6.9-10.8 fL Neutrophils (%) (Auto) 68.3 37.0-80.0 % Lymphocytes (%) (Auto) 23.9 10.0-50.0 % Monocytes (%) (Auto) 7.3 0.0-12.0 % Eosinophils (%) (Auto) 0.0 0.0-7.0 % Basophils (%) (Auto) 0.5 0.0-2.0 % Neutrophils # (Auto) 7.2 1.6-8.6 10 ^3/uL Lymphocytes # (Auto) 2.5 0.4-5.4 10 ^3/uL Monocytes # (Auto) 0.8 0-1.3 10 ^3/uL Eosinophils # (Auto) 0 0-0.8 10 ^3/uL Basophils # (Auto) 0.1 0-0.2 10 ^3/uL Nucleated Red Blood Cells 0.1 % Sodium Level 126 L 136-145 mmol/L Potassium Level 5.8 *H 3.5-5.1 mmol/L Chloride Level 90 L 98-107 mmol/L Carbon Dioxide Level 22 20-31 mmol/L Anion Gap 14 5-15 Blood Urea Nitrogen 44 H 9-23 mg/dL Creatinine 1.53 H 0.550-1.02 mg/dL Glomerular Filtration Rate Calc 37 >90 mL/min BUN/Creatinine Ratio 28.8 H 10.0-20.0 Serum Glucose 677 *H 74-106 mg/dL Serum Osmolality 326 H 278-298 mOsm/kg Calcium Level 9.5 8.7-10.4 mg/dL Troponin I High Sensitivity < 3 L </=34 ng/L Beta-Hydroxybutyric Acid 3.148 H < 0.4 mmol/L Urine Color Light-yellow Yellow Urine Clarity Clear Clear Urine pH 5.5 5.0-9.0 Urine Specific [place] 1.023 1.001-1.035 Urine Protein Negative Negative Urine Ketones 1+ H Negative Urine Blood Negative Negative /uL Urine Nitrite Negative Negative Urine Bilirubin Negative Negative Urine Urobilinogen Normal Negative mg/dL Urine Leukocyte Esterase Negative Negative /uL Urine RBC None seen 0 - 4 /hpf Urine Microscopic WBC < 1 0-5 /HPF Urine Squamous Epithelial Cells Few <5 /hpf Urine Bacteria None seen None Seen /hpf Urine Mucus Few None Seen Urine Glucose 4+ H Normal mg/dL Microbiology Date/Time Source Procedure Growth Status 03/16/25 07:32 Nose MRSA Screen - Final Complete Assessment Acute kidney injury superimposed Chronic Kidney Disease secondary hemodynamic me diated Uncontrolled diabetes mellitus medical noncompliance Hyperglycemia Diabetic ketoacidosis, resolved Hyperkalemia resolved Hyponatremia, dilutional, resolved Oral candidiasis Recommendations Kidney function is improving Closely monitor fluid and electrolytes Avoid nephrotoxic medication Strict I&Os Change IV F to half NS with 20 mEq potassium chloride at 120 cc/hour Insulin sliding scale Nystatin oral solution 5 cc swish and swallow q.i.d. for five days Diabetic diet We will continue to follow up I will sign off this case, please reconsult as needed Thank you for the consult Plan discussed with: Patient MILENA HAWKINS MD Mar 16, 2025 10:09
--- NOTE | 2025-03-16 10:11 | DVH ---
Renal ultrasound HISTORY: [place] TECHNIQUE: 2 D ultrasound was performed with transaxial and longitudinal images. FINDINGS: Right kidney measures 10.9 cm and left kidney measures 10.6 cm. No renal masses or stones. Mild pyelo caliectasis of the left kidney. Urinary bladder smooth walled without mass or stone IMPRESSION: 1. No evidence of hydronephrosis or obstructing stone
[2025-03-16 10:47] LABS: Hematocrit 37.2 % (36.0-46.0); Hemoglobin 12.3 g/dL (12.2-16.2); Mean Corpuscular Hemoglobin 29.4 pg (28.0-32.0); Mean Corpuscular Volume 88.5 fL (80.0-100.0); Nucleated Red Blood Cells % 0.1 %
[2025-03-16 10:54] LABS: Anion Gap 9 (5-15); Carbon Dioxide 23 mmol/L (20-31); Sodium 142 mmol/L (136-145)
[2025-03-16 10:58] LABS: Calcium 7.3 mg/dL (8.7-10.4); Chloride 110 mmol/L (98-107); Potassium 3.4 mmol/L (3.5-5.1)
[2025-03-16 11:00] LABS: BUN/Creatinine Ratio 30.9 (10.0-20.0); Blood Urea Nitrogen 21 mg/dL (9-23); Magnesium 2.2 mg/dL (1.6-2.6)
[2025-03-16 11:08] LABS: Glucose 216 mg/dL (74-106)
[2025-03-16 11:49] LABS: Protein, Urine 9.1 mg/dL (1-14)
[2025-03-16] MEDS ORDERED: DEXTROSE (50%) 50ML SYRG IV PRN (12:00)
[2025-03-16] MEDS: NYSTATIN (MOUTH-THROAT) 500,000 UNITS/5 ML SUSP MT SCH (12:39)
[2025-03-16] MEDS: SOD CHL 0.45% WITH 20MEQ KCL 1,000 ML IV SCH (12:40)
[2025-03-16] MEDS: POTASSIUM PHOSPHATE 22 MEQ in SODIUM CHL 0.9% 100 ML IV ONE (12:40)
[2025-03-16] MEDS: InsuLIN REG 1unit/0.01ml Soln (100units/ml) SC SCH (17:00)
[2025-03-16] MEDS: ACCU-CHEK COMFORT CURVE STRIP VI SCH (17:02)
[2025-03-16 17:12] LABS: Potassium 4.0 mmol/L (3.5-5.1); Sodium 142 mmol/L (136-145)
[2025-03-16 17:13] LABS: Anion Gap 11 (5-15); Carbon Dioxide 20 mmol/L (20-31)
[2025-03-16 17:18] LABS: BUN/Creatinine Ratio 28.8 (10.0-20.0); Blood Urea Nitrogen 17 mg/dL (9-23)
[2025-03-16 17:25] LABS: Calcium 6.9 mg/dL (8.7-10.4); Chloride 111 mmol/L (98-107); Glucose 183 mg/dL (74-106)
--- NOTE | 2025-03-16 17:43 | DVHPN2 ---
Subjective Patient is currently insulin drip is off, tolerating diet. 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 Medications Current Medications Medications Dose Ordered Sig/Soumya Route Start Time Stop Time Status Last Admin Dose Admin Dextrose 50 ml UD PRN IV 03/15/25 19:45 Cancel Insulin Glargine 15 units DAILY SC 03/16/25 10:00 03/16/25 08:11 15 UNITS Ondansetron HCl 4 mg Q6HPRN PRN IV 03/15/25 22:00 Acetaminophen 650 mg Q6HPRN PRN PO 03/15/25 22:00 Acetaminophen/ Hydrocodone Bitart 1 tab Q6HPRN PRN PO 03/15/25 22:00 Pantoprazole Sodium 40 mg DAILY IV 03/16/25 10:00 03/16/25 08:10 40 MG Enoxaparin Sodium 40 mg DAILY SC 03/16/25 10:00 03/16/25 08:11 40 MG Insulin Human (Reg)/Sodium Chloride 100 ml @ 0.5 mls/hr Q24H IV 03/16/25 01:45 UNV Norepinephrine Bitartrate 250 ml @ 3.75 mls/hr Q24H IV 03/16/25 06:00 03/16/25 06:15 3.75 MLS/HR Potassium Chloride/Sodium Chloride 1,000 ml @ 125 mls/hr Q8H IV 03/16/25 12:00 03/16/25 12:40 125 MLS/HR Nystatin 5 ml QID MT 03/16/25 12:00 03/16/25 17:02 5 ML Diagnostic Test (Pha) 1 strip ACHS 03/16/25 17:00 03/16/25 17:02 1 STRIP Insulin Human Regular ACHS SC 03/16/25 17:00 Dextrose 50 ml UD PRN IV 03/16/25 12:00 Laboratory Results Laboratory Tests 03/16/25 10:22 03/16/25 14:50 Chemistry Test 03/15/25 18:54 03/15/25 19:44 03/15/25 22:26 03/16/25 01:59 Calcium Level 9.5 mg/dL (8.7-10.4) 9.1 mg/dL (8.7-10.4) 8.3 mg/dL (8.7-10.4) L 8.1 mg/dL (8.7-10.4) L Phosphorus Level 4.1 mg/dL (2.4-5.1) 4.1 mg/dL (2.4-5.1) Magnesium Level 2.4 mg/dL (1.6-2.6) Test 03/16/25 04:36 03/16/25 10:22 03/16/25 14:50 Calcium Level 8.0 mg/dL (8.7-10.4) L 7.3 mg/dL (8.7-10.4) L 6.9 mg/dL (8.7-10.4) L Magnesium Level 2.1 mg/dL (1.6-2.6) 2.2 mg/dL (1.6-2.6) 2.1 mg/dL (1.6-2.6) Phosphorus Level 2.8 mg/dL (2.4-5.1) 2.0 mg/dL (2.4-5.1) L Urinalysis Test 03/15/25 18:36 03/16/25 09:30 Urine Color Light-yellow (Yellow) Urine Clarity Clear (Clear) Urine pH 5.5 (5.0-9.0) Urine Specific [place] 1.023 (1.001-1.035) Urine Protein Negative (Negative) Urine Ketones 1+ (Negative) H Urine Blood Negative /uL (Negative) Urine Nitrite Negative (Negative) Urine Bilirubin Negative (Negative) Urine Urobilinogen Normal mg/dL (Negative) Urine Leukocyte Esterase Negative /uL (Negative) Urine RBC None seen /hpf (0 - 4) Urine Microscopic WBC < 1 /HPF (0-5) Urine Squamous Epithelial Cells Few /hpf (<5) Urine Bacteria None seen /hpf (None Seen) Urine Mucus Few (None Seen) Urine Glucose 4+ mg/dL (Normal) H Urine Creatinine 33.74 mg/dL (30.0-125.0) Urine Protein/Creatinine Ratio 0.27 Urine Sodium 68 mmol/L (40-220) Urine Total Protein 9.1 mg/dL (1-14) Blood Gas Results Test 03/15/25 19:53 Arterial Blood pH 7.371 (7.350-7.450) FiO2 % 21.0 Microbiology Microbiology Date/Time Source Procedure Growth Status 03/16/25 07:32 Nose MRSA Screen - Final Complete Assessment/Plan Assessment/Plan 64-year-old female with a known history of diabetes mellitus type 2 insulin- dependent presented to the hospital with a loss of appetite generalized weakness found to have 1. Diabetic ketoacidosis 2. Hyperkalemia treated 3. Acute kidney injury suspected secondary to vasomotor nephropathy 4. Hypertension Diabetic diet as tolerated, resume home dose of insulin, downgraded to telemetry Plan discussed with: Patient, Other My Orders Orders - EVENS PASCAL MD Procedure Category Date Status Time Complete Blood Count LAB 03/17/25 Verified 04:00 Basic Metabolic Panel LAB 03/17/25 Verified 04:00 Date of Service: Mar 16, 2025 Billing Provider: EVENS PASCAL MD Common Visit Codes: NOT BILLABLE EVENS PASCAL MD Mar 16, 2025 17:43
[2025-03-16] MEDS ORDERED: CALC-518 PO (20:21)
[2025-03-16] MEDS ORDERED: LISI20TA56 PO (20:21)
[2025-03-16] MEDS ORDERED: CHLO0.12 (20:21)
[2025-03-16] MEDS ORDERED: INSUINJ37 SC (20:21)
[2025-03-16] MEDS ORDERED: SERT-160 PO (20:21)
[2025-03-16] MEDS ORDERED: GABA-1250 PO (20:21)
[2025-03-16] MEDS ORDERED: ATOR-47 PO (20:21)
[2025-03-16] MEDS ORDERED: DULA0.5I SC (20:21)
[2025-03-16] MEDS ORDERED: METF-372 PO (20:21)
[2025-03-16] MEDS ORDERED: FENO160T PO (20:21)
[2025-03-16] MEDS ORDERED: ESCI1TAB36 PO (20:21)
[2025-03-17] VITALS (77 sets, daily range): BP systolic 94–159; BP diastolic 44–80; PULSE 61–83; RESP 8–28; TEMP 97.1–98.8; O2SAT 91–99
[2025-03-17 05:42] LABS: Hematocrit 36.0 % (36.0-46.0); Hemoglobin 12.1 g/dL (12.2-16.2); Mean Corpuscular Hemoglobin 29.4 pg (28.0-32.0); Mean Corpuscular Volume 87.3 fL (80.0-100.0); Nucleated Red Blood Cells % 0.0 %
[2025-03-17 05:51] LABS: Anion Gap 10 (5-15); Carbon Dioxide 24 mmol/L (20-31); Potassium 4.1 mmol/L (3.5-5.1); Sodium 144 mmol/L (136-145)
[2025-03-17 05:52] LABS: Calcium 7.6 mg/dL (8.7-10.4); Chloride 110 mmol/L (98-107)
[2025-03-17 05:57] LABS: BUN/Creatinine Ratio 15.8 (10.0-20.0); Blood Urea Nitrogen 9 mg/dL (9-23); Magnesium 2.1 mg/dL (1.6-2.6)
[2025-03-17 06:11] LABS: Glucose 110 mg/dL (74-106)
[2025-03-17] MEDS: ACETAMINOPHEN 325 MG TAB PO PRN (16:00)
--- NOTE | 2025-03-17 16:50 | DVHPN2 ---
Subjective Patient is currently insulin drip is off, tolerating diet. 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 Medications Current Medications Medications Dose Ordered Sig/Soumya Route Start Time Stop Time Status Last Admin Dose Admin Dextrose 50 ml UD PRN IV 03/15/25 19:45 Cancel Insulin Glargine 15 units DAILY SC 03/16/25 10:00 03/17/25 09:01 15 UNITS Ondansetron HCl 4 mg Q6HPRN PRN IV 03/15/25 22:00 Acetaminophen 650 mg Q6HPRN PRN PO 03/15/25 22:00 Acetaminophen/ Hydrocodone Bitart 1 tab Q6HPRN PRN PO 03/15/25 22:00 Pantoprazole Sodium 40 mg DAILY IV 03/16/25 10:00 03/17/25 09:00 40 MG Enoxaparin Sodium 40 mg DAILY SC 03/16/25 10:00 03/17/25 09:01 40 MG Insulin Human (Reg)/Sodium Chloride 100 ml @ 0.5 mls/hr Q24H IV 03/16/25 01:45 UNV Norepinephrine Bitartrate 250 ml @ 3.75 mls/hr Q24H IV 03/16/25 06:00 03/16/25 06:15 3.75 MLS/HR Potassium Chloride/Sodium Chloride 1,000 ml @ 125 mls/hr Q8H IV 03/16/25 12:00 03/16/25 21:14 125 MLS/HR Nystatin 5 ml QID MT 03/16/25 12:00 03/17/25 11:59 5 ML Diagnostic Test (Pha) 1 strip ACHS 03/16/25 17:00 03/17/25 11:39 1 STRIP Insulin Human Regular ACHS SC 03/16/25 17:00 03/17/25 11:53 2 UNITS Dextrose 50 ml UD PRN IV 03/16/25 12:00 Sertraline HCl 50 mg DAILY PO 03/18/25 10:00 Laboratory Results Laboratory Tests 03/17/25 05:14 Chemistry Test 03/17/25 05:14 Calcium Level 7.6 mg/dL (8.7-10.4) L Magnesium Level 2.1 mg/dL (1.6-2.6) Urinalysis Test 03/15/25 18:36 03/16/25 09:30 Urine Color Light-yellow (Yellow) Urine Clarity Clear (Clear) Urine pH 5.5 (5.0-9.0) Urine Specific [place] 1.023 (1.001-1.035) Urine Protein Negative (Negative) Urine Ketones 1+ (Negative) H Urine Blood Negative /uL (Negative) Urine Nitrite Negative (Negative) Urine Bilirubin Negative (Negative) Urine Urobilinogen Normal mg/dL (Negative) Urine Leukocyte Esterase Negative /uL (Negative) Urine RBC None seen /hpf (0 - 4) Urine Microscopic WBC < 1 /HPF (0-5) Urine Squamous Epithelial Cells Few /hpf (<5) Urine Bacteria None seen /hpf (None Seen) Urine Mucus Few (None Seen) Urine Glucose 4+ mg/dL (Normal) H Urine Creatinine 33.74 mg/dL (30.0-125.0) Urine Protein/Creatinine Ratio 0.27 Urine Sodium 68 mmol/L (40-220) Urine Total Protein 9.1 mg/dL (1-14) Microbiology Microbiology Date/Time Source Procedure Growth Status 03/16/25 07:32 Nose MRSA Screen - Final Complete Assessment/Plan Assessment/Plan 64-year-old female with a known history of diabetes mellitus type 2 insulin- dependent presented to the hospital with a loss of appetite generalized weakness found to have 1. Diabetic ketoacidosis 2. Hyperkalemia treated 3. Acute kidney injury suspected secondary to vasomotor nephropathy 4. Hypertension Diabetic diet as tolerated, resume home dose of insulin, start antidepressant. Plan discussed with: Patient My Orders Orders - EVENS PASCAL MD Procedure Category Date Status Time Transfer Orders XFER 03/17/25 Transmitted 15:14 Sertraline Hcl PHA 03/18/25 In Process (Zoloft) 10:00 Date of Service: Mar 17, 2025 Billing Provider: EVENS PASCAL MD Common Visit Codes: NOT BILLABLE EVENS PASCAL MD Mar 17, 2025 16:50
[2025-03-17] MEDS: NOREPINEPHRINE 8 MG/250ML KIT 250 ML IV ONE (17:17)
[2025-03-17] MEDS: SODIUM BICARB 8.4% 50Meq/50ml SYR Vial IV ONE (17:17)
[2025-03-17] MEDS: SODIUM ZIRCONIUM CYCL 10 GM PAK ONE (17:17)
[2025-03-17] MEDS: CALCIUM GLUC 1,000mg/50ml-NS 50 ML IV ONE (17:18)
[2025-03-17] MEDS: ALBUTEROL SULF 2.5 MG/0.5ML(0.5%) NEB SOLN ONE (17:18)
[2025-03-18] VITALS (7 sets, daily range): BP systolic 104–157; BP diastolic 68–84; PULSE 67–71; RESP 14–18; TEMP 97.8–98.6; O2SAT 96–98
[2025-03-18] MEDS: MIDAZOLAM DRIP 50 mg/50mL 50 ML IV ONE (04:42)
[2025-03-18] MEDS: SERTRALINE HCL 50 MG TAB PO SCH (10:28)
[2025-03-18] MEDS ORDERED: SERT50TA PO (15:14)
--- NOTE | 2025-03-18 15:17 | DVHDS2 ---
Discharge Summary Date of Admission Mar 15, 2025 at 21:57 Date of Discharge: Mar 18, 2025 Labs/Diagnostic Data: Laboratory Results Test 03/18/25 11:16 03/18/25 05:35 03/17/25 05:14 03/16/25 10:22 POC Glucose 218 mg/dl (70-106) Magnesium Level 2.2 mg/dL (1.6-2.6) White Blood Count 10.3 10^3/uL (4.4-10.8) Red Blood Count 4.12 10^6/uL (4.0-5.20) Hemoglobin 12.1 g/dL (12.2-16.2) Hematocrit 36.0 % (36.0-46.0) Mean Corpuscular Volume 87.3 fL (80.0-100.0) Mean Corpuscular Hemoglobin 29.4 pg (28.0-32.0) Mean Corpuscular Hemoglobin Concent 33.6 g/dL (32.0-36.0) Red Cell Distribution Width 13.3 % (11.8-14.3) Platelet Count 288 10^3/uL (140-450) Mean Platelet Volume 7.5 fL (6.9-10.8) Neutrophils (%) (Auto) 58.1 % (37.0-80.0) Lymphocytes (%) (Auto) 33.2 % (10.0-50.0) Monocytes (%) (Auto) 7.4 % (0.0-12.0) Eosinophils (%) (Auto) 0.7 % (0.0-7.0) Basophils (%) (Auto) 0.6 % (0.0-2.0) Neutrophils # (Auto) 6.0 10 ^3/uL (1.6-8.6) Lymphocytes # (Auto) 3.4 10 ^3/uL (0.4-5.4) Monocytes # (Auto) 0.8 10 ^3/uL (0-1.3) Eosinophils # (Auto) 0.1 10 ^3/uL (0-0.8) Basophils # (Auto) 0.1 10 ^3/uL (0-0.2) Nucleated Red Blood Cells 0.0 % Sodium Level 144 mmol/L (136-145) Potassium Level 4.1 mmol/L (3.5-5.1) Chloride Level 110 mmol/L (98-107) Carbon Dioxide Level 24 mmol/L (20-31) Anion Gap 10 (5-15) Blood Urea Nitrogen 9 mg/dL (9-23) Creatinine 0.57 mg/dL (0.550-1.02) Glomerular Filtration Rate Calc 100 mL/min (>90) BUN/Creatinine Ratio 15.8 (10.0-20.0) Serum Glucose 110 mg/dL (74-106) Calcium Level 7.6 mg/dL (8.7-10.4) Phosphorus Level 2.0 mg/dL (2.4-5.1) Vitamin D 25-Hydroxy 41.9 ng/mL (30.0-100) Test 03/16/25 09:30 03/15/25 19:53 03/15/25 19:44 03/15/25 18:54 Urine Creatinine 33.74 mg/dL (30.0-125.0) Urine Protein/Creatinine Ratio 0.27 Urine Sodium 68 mmol/L (40-220) Urine Total Protein 9.1 mg/dL (1-14) Blood Gas Specimen Type Arterial Blood Gas Sample Site Right radial Blood Gas Patient Temperature 37.0 Arterial Blood Date Drawn [id number] Arterial Blood pH 7.371 (7.350-7.450) Arterial Blood Partial Pressure CO2 34.3 mmHg (32.0-45.0) Arterial Blood Partial Pressure O2 60.7 mmHg (83.0-108.0) Arterial Blood HCO3 19.4 mmol/L (21.0-28.0) Arterial Blood Oxygen Saturation 89.4 % (94.0-98.0) Arterial Blood Base Excess -4.9 mmol/L (-2.0-3.0) Arterial Blood Oxyhemoglobin 88.4 % (94.0-98.0) Arterial Blood Carboxyhemoglobin 0.4 % (0.5-1.5) Arterial Blood Methemoglobin 0.7 % (0.0-1.5) Luis Test Yes Blood Gas Total Hemoglobin 15.10 g/dL (12.0-16.0) Blood Gas Liter Flow 0.00 Blood Gas Modality Room air FiO2 % 21.0 Troponin I High Sensitivity < 3 ng/L (</=34) Serum Osmolality 326 mOsm/kg (278-298) Beta-Hydroxybutyric Acid 3.148 mmol/L (< 0.4) Test 03/15/25 18:36 Urine Color Light-yellow (Yellow) Urine Clarity Clear (Clear) Urine pH 5.5 (5.0-9.0) Urine Specific Hankinson 1.023 (1.001-1.035) Urine Protein Negative (Negative) Urine Ketones 1+ (Negative) Urine Blood Negative /uL (Negative) Urine Nitrite Negative (Negative) Urine Bilirubin Negative (Negative) Urine Urobilinogen Normal mg/dL (Negative) Urine Leukocyte Esterase Negative /uL (Negative) Urine RBC None seen /hpf (0 - 4) Urine Microscopic WBC < 1 /HPF (0-5) Urine Squamous Epithelial Cells Few /hpf (<5) Urine Bacteria None seen /hpf (None Seen) Urine Mucus Few (None Seen) Urine Glucose 4+ mg/dL (Normal) Other Laboratory Tests 03/17/25 05:14 Brief Hx & Hospital Course: 64-year-old female with a known history of diabetes mellitus type 2 insulin- dependent presented to the hospital with a loss of appetite generalized weakness found to have diabetic ketoacidosis as well as hyperkalemia. Patient also has a acute kidney injury suspected secondary to vasomotor nephropathy. Patient was initially started on insulin drip which was tapered off . Patient was downgraded to telemetry patient also complaining of depression but denies any suicidal ideas or thoughts. Patient was started on sertraline which will be prescribed. Patient is being discharged under stable condition. Condition at Discharge: Stable Final Diagnosis/Problems List 64-year-old female with a known history of diabetes mellitus type 2 insulin-dependent presented to the hospital with a loss of appetite generalized weakness found to have 1. Diabetic ketoacidosis resolved 2. Hyperkalemia treated 3. Acute kidney injury suspected secondary to vasomotor nephropathy 4. Hypertension Diabetic diet as tolerated, resume home dose of insulin, downgraded to telemetry Discharge Disposition: Home SNF Discharge Will this Physician continue t: No Discharge Instruct/Medications Diet: Cardiac 2g Na,low cholest Diet comment: 1800 ADA diet Activity: No Restrictions, As Tolerated Follow Up/Referral: Please follow up with the PCP in one week Follow up with the Psychiatry in one week Medications: Sertraline as prescribed. New Medications: Sertraline Hcl (Zoloft) 50 Mg Tab 50 MG PO DAILY for 20 Days, #20 TAB Continued Medications: Atorvastatin Calcium (Atorvastatin Calcium) 80 Mg Tab 1 TAB PO DAILY Calcium Carbonate (Calcium 600) 600 Mg Tab 1 TAB PO BID Chlorhexidine Gluconate (Chlorhexidine Gluconate) 0.12 % Chely Dulaglutide (Trulicity) 1.5 Mg/0.5 Ml Inj SC Escitalopram Oxalate (Escitalopram Oxalate) 10 Mg Tab 1 TAB PO DAILY Fenofibrate (Fenofibrate) 160 Mg Tab TAB PO Gabapentin (Gabapentin) 300 Mg Cap 1 CAP PO TID Ibuprofen Micronized (Motrin Tablet) 600 Mg Tb 600 MG PO TID PRN, #40 TAB *Black box warning-NSAIDS can increase risk of GA & hypertension, GI irritation, ulceration, bleed, perferation. Do not use post cardiac surgery. Use short duration/lowest effective dose. Insulin Glargine (Lantus Solostar) 100 Unit/Ml Inj SC Ketoconazole (Ketoconazole) 2 % Cre 1 APPLIC TOP BID, #60 GRAMS Lisinopril (Lisinopril) 20 Mg Tab 1 TAB PO DAILY Metformin Hydrochloride (Metformin Hcl) 1,000 Mg Tab 1 TAB PO BID Sertraline Hcl (Sertraline Hcl) 100 Mg Tab 1 TAB PO DAILY Scheduled Atorvastatin Calcium (Atorvastatin Calcium), 1 TAB PO DAILY, (Reported) Calcium Carbonate (Calcium 600), 1 TAB PO BID, (Reported) Escitalopram Oxalate (Escitalopram Oxalate), 1 TAB PO DAILY, (Reported) Gabapentin (Gabapentin), 1 CAP PO TID, (Reported) Ketoconazole (Ketoconazole), 1 APPLIC TOP BID Lisinopril (Lisinopril), 1 TAB PO DAILY, (Reported) Metformin Hydrochloride (Metformin Hcl), 1 TAB PO BID, (Reported) Sertraline Hcl (Sertraline Hcl), 1 TAB PO DAILY, (Reported) Sertraline Hcl (Zoloft), 50 MG PO DAILY Scheduled PRN Ibuprofen Micronized (Motrin Tablet), 600 MG PO TID PRN Miscellaneous Medications Chlorhexidine Gluconate (Chlorhexidine Gluconate), (Reported) Dulaglutide (Trulicity), SC, (Reported) Fenofibrate (Fenofibrate), TAB PO, (Reported) Insulin Glargine (Lantus Solostar), SC, (Reported) Discharge Statement: "Patient was advised to return to the ER or call 911 if any headaches, dizziness, shortness of breath, chest pain, abdominal pain, bleeding, fevers, or worsening of medical condition. Patient was counseled about treatment plan, medications, possible side effects, patientverbalized understanding. All questions were answered to the best of my ability. This discharge took greater then 30 minutes in planning, reviewing documentation, counseling the patient, and discussing with other team members." ASSESSMENT ASSESSMENT Assessment 64-year-old female with a known history of diabetes mellitus type 2 insulin- dependent presented to the hospital with a loss of appetite generalized weakness found to have 1. Diabetic ketoacidosis resolved 2. Hyperkalemia treated 3. Acute kidney injury suspected secondary to vasomotor nephropathy 4. Hypertension Diabetic diet as tolerated, resume home dose of insulin, downgraded to telemetry Date of Service: Mar 18, 2025 Billing Provider: EVENS PASCAL MD Common Visit Codes: NOT BILLABLE EVENS PASCAL MD Mar 18, 2025 15:17
== END 2025-03-18 17:30 | disposition home or self-care (01) | DRG 682 ==
LOC: ER 17:57 → OVERFLOW 21:57 → ICU CENTRL 23:50 → TELE-WESTW 03-17 20:48
PROVIDERS: ADMIT Nurse Practitioner Family; ATTEND Nurse Practitioner Family
DX: N17.0 Acute kidney failure with tubular necrosis (principal); E11.10 Type 2 diabetes mellitus with ketoacidosis without coma; E87.1 Hypo-osmolality and hyponatremia; B37.0 Candidal stomatitis; I10 Essential (primary) hypertension; E87.5 Hyperkalemia; Z91.148 Patient's other noncompliance with medication regimen for other reason; Z79.1 Long term (current) use of non-steroidal anti-inflammatories (NSAID); Z79.899 Other long term (current) drug therapy; Z79.84 Long term (current) use of oral hypoglycemic drugs; F32.A Depression, unspecified; Z79.4 Long term (current) use of insulin
CPT/HCPCS: 36415; 36600; 71045; 76775; 80048; 81001; 82010; 82306; 82570; 82805; 82962; 83735; 83930; 84100; 84156; 84300; 84484; 85025; 87081; 94640; 96360; 97110; 97116; 97163; 97530; 99291; G0378; J1815; J2470